=== PATIENT | female | born 1995 | race Caucasian/White ===

== ENCOUNTER 2018-03-20 18:58 | Emergency (ER) | payer BC ==
[~2018-03-20] VITALS: Ht 167.6 cm; Wt 110.0 kg
[~2018-03-20 18:58] MED LIST: DIAZ5TAB PO
[2018-03-20 19:06] VITALS: BP 110/69
--- NOTE | 2018-03-20 20:00 | NUR ---
PATIENT TWISTED RIGHT ANKLE WHILE DANCING AT A BAR. NIDIA WRAPP APPLIED TO RIGHT ANKLE: BIAS BINDING FOLDER WNL PEDAL PULSES 2+, CRUTCH TRAINING DONE, PATIETN HAS USED CRUTCHES IN THE PAST.
== END 2018-03-20 20:57 | disposition home or self-care (01) ==
LOC: ER 18:58
DX: S93.601A Unspecified sprain of right foot, initial encounter (principal); I10 Essential (primary) hypertension; E11.9 Type 2 diabetes mellitus without complications; Z98.890 Other specified postprocedural states; X50.1XXA Overexertion from prolonged static or awkward postures, initial encounter; Y93.41 Activity, dancing; Y92.89 Other specified places as the place of occurrence of the external cause; Y99.8 Other external cause status
CPT/HCPCS: 73630; 99283

== ENCOUNTER 2018-05-27 17:11 | Emergency (ER) | payer BC ==
[~2018-05-27] VITALS: Ht 167.6 cm; Wt 120.0 kg
[2018-05-27 17:20] VITALS: BP 130/76
[2018-05-27 19:13] LABS: URINE HCG NEGATIVE (NEG)
[2018-05-27 19:37] LABS: CLARITY,URINE CLEAR (Clear); COLOR,URINE YELLOW (Yellow); GLUCOSE, URINE NEGATIVE (Neg); KETONES,URINE NEGATIVE (Neg); LEUKOCYTE ESTERASE ,URINE NEGATIVE (Neg); NITRITES, URINE NEGATIVE (Neg); OCCULT BLOOD,URINE MODERATE (Neg); PROTEIN,URINE NEGATIVE (Neg)
[2018-05-27 19:38] LABS: BASOPHILS # (AUTO) 0.1 X10'3 (0-0.2); BASOPHILS % (AUTO) 0.7 % (0-1); EOSINOPHILS # (AUTO) 0.1 X10'3 (0-0.9); EOSINOPHILS % (AUTO) 0.4 % (0-6); HEMATOCRIT 37.7 % (35.0-45.0); HEMOGLOBIN 12.5 g/dl (12.0-16.0); LYMPHOCYTES # (AUTO) 2.2 X10'3 (1.1-4.8); LYMPHOCYTES % (AUTO) 14.3 % (21-51); MEAN CORPUSCULAR HEMOGLOBIN 28.5 PG (27.0-31.0); MEAN CORPUSCULAR VOLUME 86.3 FL (78-98); MEAN PLATELET VOLUME 8.9 FL (7.4-10.4); MONOCYTES # (AUTO) 1.2 X10'3 (0-0.9); MONOCYTES % (AUTO) 7.7 % (2-12); NEUTROPHILS # (AUTO) 11.6 X10'3 (1.8-7.7); NEUTROPHILS % (AUTO) 76.9 % (42-75); PLATELET COUNT 438 X10'3 (140-440); RED BLOOD COUNT 4.37 X10'6 (4.20-5.60); RED CELL DISTRIBUTION WIDTH 12.9 % (11.5-14.5); WHITE BLOOD COUNT 15.1 X10'3 (4.5-11.0)
[2018-05-27 19:43] LABS: UA COLLECTION TYPE CLN CATCH MIDSTREAM
[2018-05-27 19:44] LABS: BACTERIA,URINE FEW /HPF (Neg); SQUAMOUS EPITHELIAL CELL,UR FEW /LPF (FEW); WBC,URINE 0-4 /HPF (0-4)
[2018-05-27 19:48] LABS: ALANINE AMINOTRANSFERASE 28 U/L (12-78); ALBUMIN 3.3 G/DL (3.4-5.0); ALBUMIN/GLOBULIN RATIO 0.8 (1.1-1.5); ALKALINE PHOSPHATASE 73 IU/L (46-116); ANION GAP 11 (8-16); ASPARTATE AMINO TRANSFERASE 14 U/L (10-37); BILIRUBIN,TOTAL 0.3 MG/DL (0.1-1.0); BLOOD UREA NITROGEN 10 MG/DL (7-18); BUN/CREATININE RATIO 14.3 (6.6-38.0); CALCIUM 8.8 MG/DL (8.5-10.1); CHLORIDE 101 MMOL/L (99-107); GLUCOSE 97 MG/DL (70-104); POTASSIUM 3.5 MMOL/L (3.5-5.1); SODIUM 139 MMOL/L (135-145); TOTAL CARBON DIOXIDE 27.1 MMOL/L (24-32); TOTAL PROTEIN 7.6 G/DL (6.4-8.2); eGFR > 90 ML/MIN
[2018-05-27 19:51] LABS: PROTHROMBIN TIME 10.3 SECONDS (9.0-12.0)
[2018-05-27] MEDS ORDERED: FLO0.4C PO (20:23)
[2018-05-27] MEDS ORDERED: HYDR-4383 PO (20:23)
[2018-05-27] MEDS ORDERED: ONDA4TAB6 PO (20:23)
[2018-05-27] MEDS ORDERED: ketorolac tromethamine 15mg/ml inj. IM ONE (20:35)
== END 2018-05-27 20:48 | disposition home or self-care (01) ==
LOC: ER 17:12
DX: J02.9 Acute pharyngitis, unspecified (principal); N20.0 Calculus of kidney; K64.9 Unspecified hemorrhoids; Z98.51 Tubal ligation status; Z79.899 Other long term (current) drug therapy
CPT/HCPCS: 36415; 80053; 81001; 81025; 85025; 85610; 87081; 87880; 99283

== ENCOUNTER 2018-07-20 13:46 | Emergency (ER) | payer BC ==
[~2018-07-20] VITALS: Ht 167.6 cm; Wt 119.0 kg
[~2018-07-20 13:46] MED LIST changes: +HYDR-4383 PO; +ONDA4TAB6 PO
[2018-07-20] MEDS ORDERED: FLO0.4C PO (16:59)
[2018-07-20 17:12] LABS: BASOPHILS # (AUTO) 0.1 X10'3 (0-0.2); BASOPHILS % (AUTO) 0.5 % (0-1); EOSINOPHILS # (AUTO) 0.2 X10'3 (0-0.9); EOSINOPHILS % (AUTO) 1.7 % (0-6); HEMATOCRIT 41.4 % (35.0-45.0); HEMOGLOBIN 13.8 g/dl (12.0-16.0); LYMPHOCYTES # (AUTO) 2.5 X10'3 (1.1-4.8); LYMPHOCYTES % (AUTO) 16.7 % (21-51); MEAN CORPUSCULAR HEMOGLOBIN 29.1 PG (27.0-31.0); MEAN CORPUSCULAR HGB CONC 33.4 g/dL (33.0-36.5); MEAN CORPUSCULAR VOLUME 87.1 FL (78-98); MEAN PLATELET VOLUME 9.6 FL (7.4-10.4); MONOCYTES # (AUTO) 0.8 X10'3 (0-0.9); MONOCYTES % (AUTO) 5.1 % (2-12); NEUTROPHILS # (AUTO) 11.3 X10'3 (1.8-7.7); PLATELET COUNT 497 X10'3 (140-440); RED BLOOD COUNT 4.76 X10'6 (4.20-5.60); RED CELL DISTRIBUTION WIDTH 13.3 % (11.5-14.5); WHITE BLOOD COUNT 14.8 X10'3 (4.5-11.0)
[2018-07-20 17:31] LABS: ALANINE AMINOTRANSFERASE 32 U/L (12-78); ALBUMIN 3.7 G/DL (3.4-5.0); ALBUMIN/GLOBULIN RATIO 0.8 (1.1-1.5); ALKALINE PHOSPHATASE 75 IU/L (46-116); ANION GAP 8 (8-16); ASPARTATE AMINO TRANSFERASE 20 U/L (10-37); BILIRUBIN,TOTAL 0.4 MG/DL (0.1-1.0); BLOOD UREA NITROGEN 6 MG/DL (7-18); BUN/CREATININE RATIO 8.7 (6.6-38.0); CALCIUM 9.1 MG/DL (8.5-10.1); CHLORIDE 102 MMOL/L (99-107); CREATININE 0.69 MG/DL (0.40-0.90); GLUCOSE 95 MG/DL (70-104); POTASSIUM 3.8 MMOL/L (3.5-5.1); SODIUM 136 MMOL/L (135-145); TOTAL CARBON DIOXIDE 26.1 MMOL/L (24-32); TOTAL PROTEIN 8.1 G/DL (6.4-8.2); eGFR > 90 ML/MIN
[2018-07-20 17:35] LABS: MAGNESIUM 1.7 MG/DL (1.5-2.4)
[2018-07-20 19:09] VITALS: BP 137/81
== END 2018-07-20 19:11 | disposition home or self-care (01) ==
LOC: ER 13:47
DX: R55 Syncope and collapse (principal); R07.89 Other chest pain; F12.90 Cannabis use, unspecified, uncomplicated; Z79.899 Other long term (current) drug therapy; Z98.51 Tubal ligation status; Z98.890 Other specified postprocedural states
CPT/HCPCS: 36415; 70450; 71045; 80053; 83735; 84484; 85025; 93005; 99284

== ENCOUNTER → 2020-10-07 | Emergency (ER) | payer BC, MEDICAID ==
[~2020-10-07] VITALS: Ht 167.6 cm; Wt 103.2 kg
[~2020-10-07] MED LIST changes: +ALBU6.7H9 INH; +DEXA6TAB6 PO; -DIAZ5TAB PO; +FLO0.4C PO; -HYDR-4383 PO
[2020-10-07 14:22] VITALS: BP 117/75
== END | disposition home or self-care (01) ==
LOC: ER 13:23
DX: U07.1 COVID-19 (principal); F12.90 Cannabis use, unspecified, uncomplicated; Z98.891 History of uterine scar from previous surgery; Z98.51 Tubal ligation status
CPT/HCPCS: 87635; 99283; C9803

== ENCOUNTER 2020-10-08 21:18 | Emergency (ER) | payer MEDICAID ==
[~2020-10-08] VITALS: Ht 167.6 cm; Wt 103.0 kg
[~2020-10-08 21:18] MED LIST changes: -ALBU6.7H9 INH; -DEXA6TAB6 PO; -ONDA4TAB6 PO
[2020-10-08 21:36] VITALS: BP 134/95
[2020-10-08] MEDS ORDERED: DEXA6TAB6 PO (22:55)
[2020-10-08] MEDS ORDERED: dexamethasone 4mg tablet PO ONE (22:55)
[2020-10-08] MEDS ORDERED: ALBU6.7H9 INH (23:20)
[2020-10-08] MEDS ORDERED: ONDA4TAB6 PO (23:28)
[2020-10-08] MEDS ORDERED: ondansetron 4mg rapidly disintigrating tab PO ONE (23:30)
== END 2020-10-08 23:29 | disposition home or self-care (01) ==
LOC: ER 21:19
DX: U07.1 COVID-19 (principal); R07.89 Other chest pain; R50.9 Fever, unspecified; F12.90 Cannabis use, unspecified, uncomplicated; Z98.51 Tubal ligation status; Z98.890 Other specified postprocedural states; Z79.899 Other long term (current) drug therapy
CPT/HCPCS: 71045; 99283

== ENCOUNTER 2023-06-13 14:15 | Emergency (ER) | payer BC, MEDICAID ==
[~2023-06-13] VITALS: Ht 167.6 cm; Wt 109.5 kg
[~2023-06-13 14:15] MED LIST changes: +ALBU6.7H14 INH; +DEXA6TAB6 PO; +ONDA4TAB6 PO
[2023-06-13 14:37] VITALS: TEMP 98.6
[2023-06-13] MEDS ORDERED: ketorolac trometh inj. 60 MG/2 ML VIAL IM ONE (17:10)
[2023-06-13] MEDS ORDERED: METH-797 PO (17:16)
[2023-06-13] MEDS ORDERED: IBUP-1985 PO (17:16)
[2023-06-13] MEDS: ketorolac trometh. 30mg/ml inj. IM ONE (17:38)
[2023-06-13 17:57] VITALS: BP 113/71; PULSE 84; RESP 18; O2SAT 100
== END 2023-06-13 18:01 | disposition home or self-care (01) ==
LOC: ER 14:15
DX: S16.1XXA Strain of muscle, fascia and tendon at neck level, initial encounter (principal); S20.212A Contusion of left front wall of thorax, initial encounter; F12.90 Cannabis use, unspecified, uncomplicated; Z79.899 Other long term (current) drug therapy; Z98.890 Other specified postprocedural states; Z98.51 Tubal ligation status; V49.9XXA Car occupant (driver) (passenger) injured in unspecified traffic accident, initial encounter; Y93.89 Activity, other specified; Y92.89 Other specified places as the place of occurrence of the external cause; Y99.8 Other external cause status
CPT/HCPCS: 70450; 71045; 72125; 96372; 99285; J1885

== ENCOUNTER 2023-10-10 08:56 | Emergency (ER) | payer BC, MEDICAID ==
[~2023-10-10] VITALS: Ht 167.6 cm; Wt 107.0 kg
[~2023-10-10 08:56] MED LIST changes: +IBUP-1985 PO; +METH-797 PO
[2023-10-10 09:07] VITALS: BP 139/85; PULSE 86; RESP 18; O2SAT 98
[2023-10-10 10:18] VITALS: TEMP 97.9
== END 2023-10-10 10:21 | disposition home or self-care (01) ==
LOC: ER 08:56
DX: S80.212A Abrasion, left knee, initial encounter (principal); S80.211A Abrasion, right knee, initial encounter; Z88.1 Allergy status to other antibiotic agents; Z79.899 Other long term (current) drug therapy; Z98.890 Other specified postprocedural states; Z79.1 Long term (current) use of non-steroidal anti-inflammatories (NSAID); W01.0XXA Fall on same level from slipping, tripping and stumbling without subsequent striking against object, initial encounter; Y93.89 Activity, other specified; Y92.89 Other specified places as the place of occurrence of the external cause; Y99.8 Other external cause status
CPT/HCPCS: 73564; 99283